=== PATIENT | male | born 1990 | race African-American/Black ===

== ENCOUNTER 2021-11-23 02:56 | Emergency (ER) | payer BC ==
[~2021-11-23] VITALS: Ht 172.7 cm; Wt 89.4 kg
[2021-11-23 06:34] VITALS: BP 137/74
== END 2021-11-23 06:35 | disposition home or self-care (01) ==
LOC: ER 02:56
PROVIDERS: Emergency Medicine
DX: U07.1 COVID-19 (principal); J06.9 Acute upper respiratory infection, unspecified; Z88.8 Allergy status to other drugs, medicaments and biological substances